=== PATIENT | male | born 1980 | race Caucasian/White ===

== ENCOUNTER → 2019-07-11 11:35 | Outpatient (CLI) | payer OTHER, SELFPAY ==
--- NOTE | ~2019-07-11 | US_ITS ---
EXAMINATION: US abdomen limited EXAM DATE: 07/11/2019 12:03 INDICATION: Abnormal liver enzymes. TECHNIQUE: Multiple grayscale and Doppler images of the abdomen right upper quadrant were obtained (b y a technologist who performed the scan) and subsequently reviewed. There is no prior study for cristian patterson. FINDINGS: The pancreatic head and body are normal in appearance. The pancreatic tail is not visualized. There is echogenic liver parenchyma, hepatic steatosis. There are too hypoechoic regions likely focal fat ty sparing. There is no evidence of intrahepatic biliary duct dilation. Portal venous flow was seen in the hepatopedal, normal direction and has normal Doppler waveform. No right-sided hydronephrosis . Common bile duct measures 4 mm, which is normal. The gallbladder wall is normal in thickness, with ex pected amount of distention. No sonographic evidence of pericholecystic fluid. There is no cholelit hiases. Technologist performing exam reports patient did not demonstrate sonographic Hauser's sign. Please note that this sign is less reliable in patients who have received pain medication. IMPRESSION: 1. Hepatic steatosis with 2 liver hypoechoic regions likely focal fatty sparing. Reviewed, dictated and finalized at location B. KNITTER IMPRESSION: 1. Hepatic steatosis with 2 liver hypoechoic regions likely focal fatty sparin g.
== END ==
PROVIDERS: PCP Family Medicine; Visit Provider Family Medicine
DX: K76.0 Fatty (change of) liver, not elsewhere classified (principal)
CPT/HCPCS: 76705

== ENCOUNTER 2020-06-03 06:54 | Outpatient (NON) | payer OTHER, SELFPAY ==
[2020-06-03 19:24] LABS: SARS-CoV-2 RNA PCR Negative
== END 2020-06-03 06:55 ==
PROVIDERS: PCP Family Medicine; Visit Provider Family Medicine
DX: J02.9 Acute pharyngitis, unspecified (principal); Z20.822 Contact with and (suspected) exposure to COVID-19
CPT/HCPCS: C9803; U0003

== ENCOUNTER 2020-08-17 07:38 | Outpatient (CLI) | payer OTHER, SELFPAY ==
--- NOTE | 2020-09-01 10:58 | WPDHOMESLEEP ---
Sleep Study - Home Unattended Date of Study: 08/17/20 Ordering Provider: Babar Kumar MD Interpreting Provider: Gretchen Bower MD Home Sleep Study Type: Apnea Link Air Height: 1.68 m Weight: 113.398 kg Body Mass Index: 40.3 Neck Circumference (inches): 17.75 Mathias: 10 Reason for Sleep Study loud snoring, excessive daytime sleepiness Sleep History Beto Willard is a 40 year old man with constant very loud snoring that bothers his who can't sleep in the same bed. He wakes around 3:00 - 4:00 a.m. and can't get back to sleep. He wakes up to urinate some nights. There is a family history of sleep disorders with his father always required power naps, and his mother has trouble sleeping. His brother uses CPAP. He occasionally has nighttime heartburn, belching or coughing but it does not completely wake him up. He does not awaken from sleep feeling short of breath. He occasionally has trouble sleeping with a cold. He does not gasp for breath at night. He occasionally has breathing problems at night observed by his . He occasionally sweats excessively at night which is better since he bought a new bed. He does not notice his heart pounding or beating irregularly at night. He rarely falls asleep during the day. He does not fall asleep involuntarily or while driving. He does not have loss of muscle tone with strong emotion. He does not have daytime difficulties due to excessive sleepiness. He does not feel paralyzed on waking or falling asleep. He does not have vivid dreamlike scenes upon awakening or falling asleep. He does not feel afraid to go to sleep. He does not have nightmares. He occasionally remembers his dreams and occasionally has racing thoughts. He does not feel sad or depressed. He occasionally has anxiety. He does not have muscular tension or notice part of his body jerking. He does not kick at night. He does not have crawling or aching feelings in his legs or any kind of leg pain at night. He does not have morning jaw pain. He does not grind his teeth during sleep. He rarely is bothered by pain during the day, never is awakened by pain at night. He rarely wakes up feeling stiff in the morning with sore achy muscles. He does not wake up with spine pain. Normal bedtime is between 8:30 - 9:30 p.m. falling asleep quickly, waking once at night to urinate. He wakes the morning at 5:30 a.m.. On the weekends he goes to bed later and sleeps until 6-8 a.m.. He estimates getting 7 hours of sleep at night. He takes naps sometimes on the weekends. A short nap may be refreshing. He feels tired in the morning, rarely awakens feeling refreshed. He feels better in the morning compared to other times of day. Habits: Tobacco half pack per day. Alcohol : a few beverages every other day PMF Past Medical History Medical History (Updated 09/01/20 @ 11:41 by Gretchen Bower MD) Essential (primary) hypertension Mixed hyperlipidemia Nonalcoholic steatohepatitis (ROOT) Obesity, Class III, BMI 40-49.9 (morbid obesity) Social History Social History Smoking status: Never smoker Alcohol intake: current Medications Home Medications Medication Instructions Recorded Confirmed Type alprazolam 0.25 mg tablet 0.25 mg PO TID PRN #30 tablet 01/12/20 07/01/20 Rx nebivolol 20 mg tablet 20 mg PO DAILY #90 tablet 05/31/20 07/01/20 Rx Sleep Procedure This test was performed using 4 channel monitoring including respiratory effort channel, snoring channel, heart rate channel, and oxygen saturation channel. This study was scored using CMS guidelines. Sleep Architecture Not applicable for home sleep test. Respiratory Analysis The recording time is 8 hours 14 minutes. Evaluation time is 7 hours 3 minutes. The apnea-hypopnea index is 37.2, severely elevated. There were 43 apneas. There were 40 obstructive apneas, 93% of the total and 3 central ap
[2020-09-01 11:33] VITALS: BMI 40.3
== END 2020-08-17 07:39 | disposition home or self-care (01) ==
LOC: ANHCSM 07:38
PROVIDERS: PCP Family Medicine; Visit Provider Family Medicine
DX: G47.33 Obstructive sleep apnea (adult) (pediatric) (principal); I10 Essential (primary) hypertension
CPT/HCPCS: 95806

== ENCOUNTER 2021-07-18 08:16 | Emergency (ER) | payer OTHER, SELFPAY ==
--- NOTE | 2021-07-18 08:19 | ED.GENADULT ---
HPI - General Adult General Chief complaint: Extremity Injury, Upper Stated complaint: Left Shoulder Pain Time Seen by Provider: 07/18/21 08:39 Mode of arrival: ambulatory Limitations: no limitations History of Present Illness HPI narrative: 41-year-old male presents concern for approximately 1 month history of left shoulder pain. Reports the pain has been increasing in intensity and duration over the past month. He denies any injury or trauma. He reports mid joint pain, deep in the joint. He denies any hand tingling, numbness. He reports pain at rest, worsening pain with motion, limited range of motion. He denies chest pain, shortness of breath. He reports repetitive upper extremity movements at work. He reports taking ibuprofen on and off for the past month. MD complaint: Shoulder Pain Related Data Allergies Allergy/AdvReac Type Severity Reaction Status Date / Time No Known Allergies Allergy Verified 07/18/21 08:39 Review of Systems Review of Systems: CONSTITUTIONAL: Denies malaise, chills, sweats, or fever. CARDIOVASCULAR: Denies chest pain, palpitations, or edema. RESPIRATORY: Denies cough or dyspnea. SKIN: Denies rash or itching, open skin, warmth, lacerations or abrasions. MUSCULOSKELETAL: Reports left shoulder pain and limited range of motion NEUROLOGIC: Denies numbness, weakness All systems reviewed & are unremarkable except as noted in HPI and below PMFSH Past Medical History Medical History Essential (primary) hypertension Mixed hyperlipidemia Nonalcoholic steatohepatitis (ROOT) Obesity, Class III, BMI 40-49.9 (morbid obesity) Tobacco abuse Social History Social History (Updated 06/24/21 @ 14:15 by JAMEE Herzog) Smoking packs per day: 0.5 Smoking cigarettes per day: 10.0 Years smoked: 20 Smoking pack-years: 10.00 Alcohol intake: current Comments At time of signature, agree with nursing past medical, surgical, social and family history. There is no relevant family history pertinent to the presenting complaint Exam Narrative: GENERAL: Well-appearing, well-nourished, and in no acute distress. HEAD: Normocephalic, atraumatic. EYES: PERRLA, conjunctivae clear NECK: Supple. CHEST: Speaks in full sentences. No respiratory distress. HEART: Regular rate and rhythm. Normal and equal peripheral pulses. EXTREMITIES: Left shoulder has normal sensation, limited range of motion. No edema or ecchymosis. 3/5 strength with left shoulder abduction and abduction. Normal sensation with sensitivity to light touch and pain. No point tenderness. No open wounds, no skin tenting, no devitalized tissue or atrophy, no trophic changes, no obvious deformity, alignment normal, nearby joints and structures intact. Distal pulses palpable and equal bilaterally, skin warm, dry, pink. Capillary refill less than 3 seconds. SKIN: Warm, dry, no rash. NEURO: Alert and oriented x3. PSYCH: Normal mood and affect Course Course Emergency Course: Patient is aware of, understands and agrees to treatment plan. Anticipatory guidance given. Patient agrees to follow-up as directed and is aware of reasons to seek care at the emergency department. Portions of this record may have been created with voice recognition software Level of Care: Express Care Visit Vital Signs Vital signs: Reviewed. Medical Decision Making MDM Narrative Medical decision making narrative: Patients pain is consistent with musculoskeletal etiology. No signs of neurological or vascular compromise on exam. Compartments and tissues are soft without signs of compartment syndrome. Pain is felt appropriate for further evaluation on an outpatient basis. ECG Data EKG #1: ECG completion date: 07/18/21 ECG completion time: 08:41 Prior ECG tracings: not available for review Interpretation: Rate 54, HI interval 165, QRS duration 97, QT 412, QTc 399. EKG Interpretation: renee
[2021-07-18 08:22] VITALS: BP 129/74; PULSE 55; RESP 20; TEMP 36.6; O2SAT 96
--- NOTE | 2021-07-18 08:25 | ECG_ITS ---
Measurements Intervals [place] Rate: 54 P: 59 AK: 165 QRS: 3 QRSD: 97 T: 21 QT: 412 QTc: 394 Interpretive Statements SINUS BRADYCARDIA INCOMPLETE RIGHT BUNDLE BRANCH BLOCK BORDERLINE ECG Electronically Signed On 07-18-2021 13:01:32 LIVESTOCK SPECULATOR by Don Green D.O.
== END 2021-07-18 08:54 | disposition home or self-care (01) ==
PROVIDERS: Emergency Provider Nurse Practitioner; PCP Family Medicine
DX: M25.512 Pain in left shoulder (principal); I10 Essential (primary) hypertension; E78.2 Mixed hyperlipidemia; K75.81 Nonalcoholic steatohepatitis (NASH); E66.01 Morbid (severe) obesity due to excess calories; Z68.41 Body mass index [BMI] 40.0-44.9, adult; F17.210 Nicotine dependence, cigarettes, uncomplicated
CPT/HCPCS: 93005; 99213; G0463

== ENCOUNTER → 2021-08-17 17:22 | Outpatient (CLI) | payer OTHER, SELFPAY ==
--- NOTE | ~2021-08-17 | MR_ITS ---
EXAMINATION: MR shoulder LT wo con DATE: 08/17/2021 18:12 INDICATION: Left shoulder pain and limited range of motion TECHNIQUE: Magnetic resonance imaging (MRI) of the left shoulder was performed without intravenous co ntrast. Sequences included axial PD-weighted FS FSE, coronal oblique PD-weighted FS FSE, coronal obli que T2-weighted FS FSE, sagittal PD-weighted FS FSE, and sagittal T1-weighted SE. COMPARISON: None. FINDINGS: Coracoacromial arch: The acromion undersurface is curved in morphology (type II) with tiny anterolateral subacromial spur. . The coracoacromial ligament is normal. Minimal acromioclavicular osteoarthritis. Rotator cuff: Mild supraspinatus and infraspinatus tendinopathy without discrete tear. The teres minor tendon is no rmal. Mild tendinopathy at the distalmost subscapularis tendon also without discrete tear.. Normal ro tator cuff muscle bulk and signal. Biceps tendon, glenoid labrum and glenohumeral cartilage: Long head of the biceps tendon is normal. Small superior, anterior to posterior tear of the glenoid l abrum (SLAP tear) 11:30-12:00 position of the superior glenoid labrum with linear increased signal ex tending laterally into the substance of the labrum. The remainder of the glenoid labrum is normal. Gl enohumeral cartilage is normal. Fluid: Physiologic amount of fluid in the glenohumeral joint and biceps tendon sheath. No loose osteochondr al bodies. Small amount of fluid in the subdeltoid bursa consistent with mild bursitis. Bones: Normal marrow signal with no edema, fracture or pathologic marrow replacing process. IMPRESSION: 1. Small SLAP tear at the superior glenoid labrum. 2. Mild subscapularis, supraspinatus and infraspinatus tendinopathy without discrete tear. 3. Mild subdeltoid bursitis. Reviewed, dictated and finalized at location A. IMPRESSION: 1. Small SLAP tear at the superior glenoid labrum. 2. Mild subscapularis, supraspinatus and infraspinatus tendinopathy without dis crete tear. 3. Mild subdeltoid bursitis.
== END ==
PROVIDERS: PCP Family Medicine; Visit Provider Physician Assistant Surgical
DX: S43.432A Superior glenoid labrum lesion of left shoulder, initial encounter (principal); M75.52 Bursitis of left shoulder
CPT/HCPCS: 73221

== ENCOUNTER 2024-06-13 00:13 | Day surgery (SDC) | payer OTHER, SELFPAY ==
[2024-05-30 12:42] VITALS: BMI 40.5
[2024-06-13 07:43] VITALS: BP 136/78; PULSE 60; RESP 16; TEMP 36.2; O2SAT 98; BMI 44.1
[2024-06-13] MEDS: LACTATED RINGERS 1,000 ML 150 ML IV CONT (07:51)
--- NOTE | 2024-06-13 08:08 | WPDANESEPPF ---
Anes - Initial Pre Proc Eval Procedure: Operation Date: 06/13/24 09:00 Proposed Procedures p Screening Colonoscopy - Rowdy Vazquez MD Date/Time: 06/13/24 08:08 Surgeon: Rowdy Vazquez MD Pre Op Diagnosis: screening/ famaily hx malignant neoplasm Patient Data Age: 44 Gender: M Height: 1.68 m Weight: 123.9 kg Last Vital Signs Temp 36.2 C L 06/13/24 07:43 Pulse 60 06/13/24 07:43 Resp 16 06/13/24 07:43 BP 136/78 06/13/24 07:43 Pulse Ox 98 06/13/24 07:43 O2 Del Method Room Air 06/13/24 07:43 Allergies Allergy/AdvReac Type Severity Reaction Status Date / Time No Known Allergies Allergy Verified 06/13/24 07:42 Home Medications ?Medication ?Instructions ?Recorded ?Confirmed ?Type CPAP Equipment #1 ea 10/02/22 06/13/24 Rx nebivolol 20 mg tablet 20 mg PO DAILY #30 tabs 12/11/23 06/05/24 Rx alprazolam 0.25 mg tablet (Xanax) 0.25 mg PO TID PRN anxiety #30 tabs 04/04/24 06/05/24 Rx Patient hx anesthesia problems: none Family hx anesthesia problems: none Results Review: All pre-operative results and documents have been reviewed as part of the pre-operative evaluation. FOR[facility]LY [facility], [facility] Past Medical History Medical History Tobacco abuse Obstructive sleep apnea Nonalcoholic steatohepatitis (ROOT) Obesity, Class III, BMI 40-49.9 (morbid obesity) Essential (primary) hypertension Mixed hyperlipidemia Surgical History Surgical History No significant past surgical history Family History Family History Father Carcinoma of colon Diabetes mellitus Social History Social History Smoking packs per day: 0.5 Smoking cigarettes per day: 10.0 Years smoked: 20 Smoking pack-years: 10.00 Smoking status: Current every day smoker Tobacco type: cigarettes Alcohol intake: current Drinks per week: 12 Lack of Transportation: No Lack of Food: Never True Current Housing: I Have Housing Concerned About Future Housing: No Difficulty Paying Gas/Electric Bills: No Difficulty Paying for Meds: No Currently Unemployed: No Education: High School Diploma/GED Difficulty w/ Childcare or Family Care: No Living arrangements: with family Spiritual care concerns: No Anes - Eval Final PreProcedure Day of Procedure 06/13/24 08:08 Patient weight: morbidly obese Heart: regular rate and rhythm Lungs: clear to auscultation Airway: Mallampati scale class II Neurological: alert and oriented Last oral intake: >/= 8 hours ASA classification: III Emergent: no Anesthetic plan: proceed Anesthesia type and monitoring: general GIVS and standard monitoring Results Review: All pre-operative results and documents have been reviewed as part of the pre-operative evaluation. Informed Consent: The patient's anesthetic plan and its attendant risks and benefits were discussed with the patient/family/POA. Questions were solicited and answers provided to the satisfaction of the patient/family/POA.
--- NOTE | 2024-06-13 08:18 | PM.HPGS ---
History of Present Illness History of Present Illness Consent: Risks, benefits, and alternatives have been discussed and questions answered. Patient agrees to proceed with procedure. Chief complaint: screening/ famaily hx malignant neoplasm Narrative: Beto Willard is a 44 year old male here for first colonoscopy, father had colon cancer Review of Systems Review of Systems: All systems reviewed & are unremarkable except as noted in HPI and below PMFSH Past Medical History Medical History Tobacco abuse Obstructive sleep apnea Nonalcoholic steatohepatitis (ROOT) Obesity, Class III, BMI 40-49.9 (morbid obesity) Essential (primary) hypertension Mixed hyperlipidemia Surgical History Surgical History No significant past surgical history Family History Family History Father Carcinoma of colon Diabetes mellitus Social History Social History Smoking packs per day: 0.5 Smoking cigarettes per day: 10.0 Years smoked: 20 Smoking pack-years: 10.00 Smoking status: Current every day smoker Tobacco type: cigarettes Alcohol intake: current Drinks per week: 12 Lack of Transportation: No Lack of Food: Never True Current Housing: I Have Housing Concerned About Future Housing: No Difficulty Paying Gas/Electric Bills: No Difficulty Paying for Meds: No Currently Unemployed: No Education: High School Diploma/GED Difficulty w/ Childcare or Family Care: No Living arrangements: with family Spiritual care concerns: No Meds Home Medications and Allergies Home Medications ?Medication ?Instructions ?Recorded ?Confirmed ?Type CPAP Equipment #1 ea 10/02/22 06/13/24 Rx nebivolol 20 mg tablet 20 mg PO DAILY #30 tabs 12/11/23 06/05/24 Rx alprazolam 0.25 mg tablet (Xanax) 0.25 mg PO TID PRN anxiety #30 tabs 04/04/24 06/05/24 Rx Allergies Allergy/AdvReac Type Severity Reaction Status Date / Time No Known Allergies Allergy Verified 06/13/24 07:42 Vital Signs Vital Signs - 24 hr 06/13/24 07:43 Temperature 97.1 F L Pulse Rate 60 Respiratory Rate 16 Blood Pressure 136/78 Pulse Oximetry 98 Oxygen Delivery Room Air Exam Const: General: comfortable and no acute distress HENMT: Face/Nose/Sinus: Normal nares present Eyes: General: appearance normal, both eyes and all related structures Neck: Neck: no JVD Resp: Auscultation: clear to auscultation bilaterally Cardio: Rate: regular rate Rhythm: regular rhythm GI: Inspection: non-distended GI Palp: Yes Soft to palpation Skin: General skin exam: normal color Neuro: General: gait normal Speech: normal speech Extrem: General: normal to inspection Psych: Mental Status: mental status grossly normal Assessment and Plan Assessment and plan (1) Family history of colon cancer: Code(s): Z80.0 - Family history of malignant neoplasm of digestive organs Status: Acute Assessment and Plan: colonoscopy
[2024-06-13 08:33] VITALS: BP 103/66; PULSE 62; RESP 20; O2SAT 94
[2024-06-13 08:43] VITALS: BP 118/74; PULSE 68; RESP 20; O2SAT 96
[2024-06-13 08:53] VITALS: BP 118/70; PULSE 52; RESP 19; O2SAT 94
== END 2024-06-13 09:03 | disposition home or self-care (01) ==
PROVIDERS: PCP Family Medicine; Visit Provider Internal Medicine Gastroenterology
PROC: 0DJD8ZZ Inspection of Lower Intestinal Tract, Via Natural or Artificial Opening Endoscopic (ICD-10-PCS; CPT 45378; principal; 2024-06-13 09:00)
DX: Z12.11 Encounter for screening for malignant neoplasm of colon (principal); D12.3 Benign neoplasm of transverse colon; I10 Essential (primary) hypertension; E78.2 Mixed hyperlipidemia; G47.33 Obstructive sleep apnea (adult) (pediatric); K75.81 Nonalcoholic steatohepatitis (NASH); F17.210 Nicotine dependence, cigarettes, uncomplicated; E66.01 Morbid (severe) obesity due to excess calories; Z68.41 Body mass index [BMI] 40.0-44.9, adult; Z99.89 Dependence on other enabling machines and devices; Z80.0 Family history of malignant neoplasm of digestive organs
CPT/HCPCS: 45385; 88305; J2704; J7120